=== PATIENT | male | born 1960 | race Caucasian/White ===

== ENCOUNTER 2017-08-08 22:23 | Emergency (ER) | payer SELFPAY ==
[2017-08-08 22:28] VITALS: BP 121/64; BMI 21.6
[2017-08-08] MEDS ORDERED: TORADOL 60 MG VIAL IM ONE (23:23)
[2017-08-08] MEDS ORDERED: NORFLEX INJ IM ONE (23:23)
[2017-08-08] MEDS ORDERED: NORFLEX INJ ONE (23:26)
[2017-08-08] MEDS ORDERED: TORADOL 60 MG VIAL ONE (23:26)
--- NOTE | 2017-08-09 00:30 | RAD ---
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 Study: Four views cervical spine. Comparison: None. Findings: AP and lateral radiographs of the cervical spine demonstrate normal alignment from the craniocervical junction to the level of C7. The central canal appears patent without posterior element abnormality . No prevertebral soft tissue swelling can be identified. The odontoid appears intact. The lateral masses of C1 align with the body of C2. No acute fracture or malalignment. Lung apices are clear. Co mpression plate with anchoring screws transfix right clavicular fracture. IMPRESSION: 1. Unremarkable examination of the cervical spine. Reported By:
--- NOTE | 2017-08-09 00:31 | RAD ---
SHOULDER RADIOGRAPHS CLINICAL HISTORY: 56-year-old male with right shoulder pain after working [employer]. COMPARISON: Right shoulder radiographs 07/10/2015. FINDINGS: 3 views of the right shoulder were obtained. There is no acute fracture. The alignment is normal. The glenohumeral and acromioclavicular joints are congruent. There is no aggressive bone le azael or abnormal periosteal reaction. There is no soft tissue calcification or gas. The right lung apex is clear. Compression plate with anchoring screws transfix well-healed clavicular fracture. Mult iple well-healed right rib fractures. IMPRESSION: No acute fracture or malalignment of the right shoulder. Reported By:
--- NOTE | 2017-08-09 00:34 | DR.EXTPAIN ---
HPI - Time seen Time seen: 23:25 - PCP Primary Care Physician: JACQUELIN - HPI Comment HPI Comment: PAIN WORSE TONIGHT. HISTORY NECK AND SHOULDER PAIN WITH PREVIOUS SURGERY. FEEL LIKE MUSCLES ARE IN SPASM IN RT SHOULDER. - Complaint/Symptoms Chief Complaint Doctor Comments: PAIN NECK AND RT SHOULDER NOTED AFTER USING SLEDGE HAMMER YESTERDAY. Chief Complaint:: "I USED THE SLEDGE HAMMER YESTERDAY AND NOW I CAN'T HARDLY MOVE MY NECK . I AM HURTING IN MY NECK AND RIGHT SHOULDER, I HAVE METAL IN MY RIGHT SHOULDER." - Nurses notes reviewed Nurses Notes Review: Yes - Source History Provided: Patient - Mode of arrival Mode of Arrival: Ambulatory - Timing Onset of Chief Complaint: 08/08/17 - Context History of: Arthritis - Associated signs and symptoms Associated Signs and Symptoms: Pain PMH - PMH Past Medical History: No Past Surgical History: Yes Surgical History: Ortho Surgery, Other - Family History History of Family Medical Conditions: No - Social History Type of Tobacco Use: Cigarettes Alcohol Use: None Do you use any recreational Drugs:: No Lives Where: Home - infectious screening Have you traveled outside the country in the last 6 months?: No Isolation: Standard ROS - Review of Systems Constitutional: No Symptoms Reported. negative: Chills, Fever, Weakness, Fatigue Eyes: No Symptoms Reported. negative: Eye Pain, Discharge ENTM: No Symptoms Reported. negative: Ear Pain, Nose Discharge, Nose Congestion , Throat Pain Respiratoy: Non-Productive Cough. negative: Productive Cough, Short of Breath, Wheezing, Hemoptysis Cardiovascular: No Symptoms Reported Gastrointestinal/Abdominal: No Symptoms Reported Genitourinary: No Symptoms Reported Neurological: No Symptoms Reported. negative: Weakness Musculoskeletal: Joint Pain, Muscle Pain, Neck Pain, Right, Shoulder Integumentary: No Symptoms Reported Hematologic/Lymphatic: No Symptoms Reported Endocrine: No Symptoms Reported All Other Systems: Reviewed and Negative PE - Vital Signs Vitals: Temperature 98.0 F Pulse Rate 67 Respiratory Rate 20 Blood Pressure 121/64 O2 Sat by Pulse Oximetry 98 - General Limitations: No Limitations General Appearance: Alert - Head Head Exam: Normal Inspection - Eyes Eye exam: Normal Appearance - ENT ENT Exam: Normal External Ear Exam - Neck Neck Exam: Trachea Midline - Chest Chest Inspection: Symmetric Chest Wall Rise - Respiratory Respiratory Exam: Chest Wall Tenderness (TENDERNESS RT SHOULDER AND RT UPPER CHEST. ROM DECREASE.), Respiratory Distress Respiratory Exam: Bilateral Clear to Auscultation - Cardiovascular Cardiovascular Exam: Regular Rate, Normal Rhythm, Normal Heart Sounds - Abdominal Exam Abdominal Exam: Normal Bowel Sounds, Soft. negative: Tenderness - Extremities Extremities Exam: Tenderness (RT SHOULDER TENDER, AYO WITH PAIN.) - Upper Extremities Shoulder Exam: Tenderness. negative: Full ROM (DECREASE ROM RT ) - Neurological Neurological Exam: Alert, Oriented X3 - Psychiatric Psychiatric Exam: Normal Affect, Normal Mood - Skin Skin Exam: Normal Color. negative: Dry Type of Lesion: Abrasion Distribution: Neck (NECK MUSCLES ON RT LATERAL NECK. AYO WITH PAIN.) MDM - Differential Diagnosis Differential Diagnosis: Fracture, Sprain Course - Treatment Treatment: EE ORDERS. IM TORADOL AND NORFLEX IN ED. PAIN IMPROVING. - Reevaluation 1st: Resolved, Worsened - Education/Counseling Education/Counseling: Patient, Education Educated On: Treatment, Diagnosis, Needs for Follow Up ROR - XRAY XRAY Interpreted by: Radiologist XRAY Findings: REPORT DISCUSS WITH PATIENT. - Diagnosis Discharge Problem: Shoulder sprain Qualifiers: Encounter type: initial encounter Shoulder sprain type: unspecified sprain Laterality: right Qualified Code(s): S43.401A - Unspecified sprain of right shoulder joint, initial encounter Strain of neck muscle Qualifiers: Encounter type: initial encounter Qualified Code(s): S16.1XXA - Strain of muscle, fascia and tendon at neck level, initial encounter - Discharge Plan Disposition: 01 HOME, SELF-CARE Condition: Stable Prescriptions: Cyclobenzaprine HCl [FLEXERIL 10 MG *] 10 mg PO TID #15 tab Ibuprofen [MOTRIN TAB 800 MG *] 800 mg PO Q8H PRN #30 tab PRN Reason: Pain/Inflammation - Follow ups/Referrals Follow ups/Referrals: N[facility],None [Primary Care Provider] - 3 days - Instructions Instructions: Cervical Strain and Sprain With Rehab-SportsMed, Shoulder Sprain Additional Instructions: RETURN TO ED IF WORSE.
== END 2017-08-09 00:45 | disposition home or self-care (01) ==
LOC: ER 23:02
DX: S43.401A Unspecified sprain of right shoulder joint, initial encounter (principal); S16.1XXA Strain of muscle, fascia and tendon at neck level, initial encounter; Y33.XXXA Other specified events, undetermined intent, initial encounter; Y92.9 Unspecified place or not applicable
CPT/HCPCS: 72040; 73030; 96372; 99282; J1885; J2360